=== PATIENT | male | born 1945 | race Caucasian/White ===

== ENCOUNTER → 2018-10-27 11:37 | Outpatient (ROUT) | payer MEDICARE, SELFPAY ==
[2018-10-27 11:40] LABS: Bacteria Urine None Seen; RBC Urine None Seen (0-5/HPF); WBC Urine None Seen (0-5/HPF)
[2018-10-27 11:53] LABS: Add Manual Diff / Slide Review NO; Basophils Absolute Auto 0 /uL (0-100); Basophils Percent Auto 0.9 % (0-2); Eosinophils Absolute Auto 600 /uL (0-450); Eosinophils Percent Auto 11.2 % (2-4); Hematocrit 47.5 % (41-53); Hemoglobin 16.4 g/dL (13.5-17.5); Lymphocytes Absolute Auto 1600 /uL (1100-4500); Lymphocytes Percent Auto 29.6 % (25-40); Mean Corpuscular HGB Conc 34.6 % (30-36); Mean Corpuscular Hemoglobin 33.3 PG (26-34); Mean Corpuscular Volume 96.1 fL (80-100); Monocytes Absolute Auto 600 /uL (0-900); Monocytes Percent Auto 10.5 % (3-14); Neutrophils Absolute Auto 2600 /uL (1500-7000); Neutrophils Percent Auto 47.8 % (50-75); Platelet Count 178 X10^3/uL (150-400); Red Blood Cell Count 4.94 X10^6/uL (4.5-5.9); Red Cell Distribution Width 13.5 % (11.6-14.8); White Blood Cell Count 5.4 X10^3/uL (4.5-11.0)
[2018-10-27 12:00] LABS: Alanine Aminotransferase 61 IU/L (21-72); Albumin 4.4 g/dL (3.5-5.0); Albumin Globulin Ratio 1.4 (1.0-2.8); Alkaline Phosphatase 43 U/L (38-126); Aspartate Aminotransferase 54 IU/L (17-59); BUN Creatinine Ratio 15.8 (6-22); Bilirubin Total 0.9 mg/dL (0.2-1.3); Blood Urea Nitrogen 19 mg/dL (9-20); Calcium 10.7 mg/dL (8.4-10.2); Carbon Dioxide 30 mmol/L (22-32); Chloride 100 mmol/L (98-107); Cholesterol 206 mg/dL (140-199); Estimated Glomerular Filt Rate 59.2 mL/min (>60); Globulin 3.1 g/dL (1.7-4.1); Glucose 116 mg/dL (80-110); HDL Cholesterol 84 mg/dL (40-60); HEMOLYSIS 18 (0-50); LDL Cholesterol Calculated 99 mg/dL (<100); Potassium 4.8 mmol/L (3.4-5.1); Sodium 139 mmol/L (137-145); Total Protein 7.5 g/dL (6.3-8.2); Triglycerides 117 mg/dL (35-150); Uric Acid 8.1 mg/dL (3.5-8.5)
[2018-10-27 12:04] LABS: Appearance Urine UA CLEAR; Bilirubin Urine UA NEGATIVE (NEGATIVE); Color Urine UA YELLOW; Glucose Urine UA NEGATIVE (Negative); Ketones Urine UA NEGATIVE (NEGATIVE); Leukocyte Esterase Urine UA NEGATIVE (NEGATIVE); Nitrite Urine UA NEGATIVE (Negative); Occult Blood Urine UA NEGATIVE (Negative); Protein Urine UA NEGATIVE (Negative); Urobilinogen Urine UA 0.2 E.U./dL (0.2)
[2018-10-27 12:21] LABS: Culture Indicated Urine Cult Not Indicated; Urine Comments Microscopic Normal
[2018-10-27 12:30] LABS: Thyroid Stimulating Hormone 4.41 uIU/mL (0.47-4.68)
== END ==
PROVIDERS: Visit Provider Internal Medicine
DX: I10 Essential (primary) hypertension (principal); M1A.40X0 Other secondary chronic gout, unspecified site, without tophus (tophi); E78.5 Hyperlipidemia, unspecified
CPT/HCPCS: 80053; 80061; 81001; 84443; 84550; 85025

== ENCOUNTER → 2019-04-17 15:25 | Outpatient (CLI) | payer OTHER, SELFPAY ==
--- NOTE | 2019-04-17 15:39 | DI.RAD.S_ITS ---
PROCEDURE: XR CHEST 2V INDICATIONS: COUGH TECHNIQUE: 2 views of the chest were acquired. COMPARISON: None. FINDINGS: Surgical changes and devices: None. Lungs and pleura: Lungs are clear. No pleural effusions or pneumothorax. Mediastinum: Mediastinal contours are normal. Heart size is normal. Bones and chest wall: No suspicious bony abnormalities. Soft tissues appear unremarkable. IMPRESSION: No acute disease Dictated by: Victor M Mcconnell M.D. on 04/17/2019 at 17:19 Approved by: Victor M Mcconnell M.D. on 04/17/2019 at 17:20
== END ==
PROVIDERS: PCP Internal Medicine; Referring Provider Internal Medicine; Visit Provider Internal Medicine
DX: R05 Cough (principal)
CPT/HCPCS: 71046

== ENCOUNTER → 2019-05-09 11:47 | Outpatient (CLI) | payer OTHER, SELFPAY ==
[2019-05-11 04:11] LABS: COVID19 Sendout Not Detected (Not Detected)
== END ==
PROVIDERS: PCP Internal Medicine; Visit Provider Family Medicine
DX: R05 Cough (principal)
CPT/HCPCS: 87635

== ENCOUNTER → 2019-07-18 10:51 | Outpatient (CLI) | payer OTHER, SELFPAY ==
[2019-07-19 10:41] LABS: COVID19 Sendout NOT DETECTED (Not Detect)
== END ==
PROVIDERS: PCP Internal Medicine; Visit Provider Registered Nurse
DX: Z01.818 Encounter for other preprocedural examination (principal)
CPT/HCPCS: 87635

== ENCOUNTER → 2019-07-21 10:40 | Outpatient (CLI) | payer OTHER, SELFPAY ==
--- NOTE | 2019-07-26 10:11 | PM.PFT.1 ---
Pulmonary Function Test Referral & Results Date Patient Seen: 07/21/19 Requesting provider: Madeleine Orr Results: The spirometry demonstrates an FVC of 2.92 L which is 71% of predicted. The FEV1 was measured at 2.21 L which is 74% of predicted. The FEV1/FVC ratio was 76 which is 104% of predicted. Following the administration of bronchodilator there was a 25% improvement in FEF 25-75%. Lung volumes show an SVC of 3.21 L which is 73% of predicted. The diffusing capacity was measured at 21.49 which is 69% of predicted. No hemoglobin value was provided, so no correction for potential anemia could be made, if appropriate. The maximum voluntary ventilation was reduced Interpretation: This study demonstrates mild to moderate obstructive lung disease based on reduction FEV1. There is some limited evidence of benefit following bronchodilator based on improvement in small airway flow as demonstrated by the improvement in the FEF 25-75% as above There is also [id number] restrictive lung disease present based on reduction SVC There is also mild reduction in diffusing capacity suggesting element of disease at the capillary alveolar level Altogether this is consistent with a diagnosis of COPD
== END ==
PROVIDERS: PCP Internal Medicine; Referring Provider Internal Medicine; Visit Provider Internal Medicine
DX: J45.901 Unspecified asthma with (acute) exacerbation (principal); Z87.891 Personal history of nicotine dependence
CPT/HCPCS: 94060; 94726; 94729

== ENCOUNTER → 2019-09-06 10:53 | Outpatient (CLI) | payer OTHER, SELFPAY ==
--- NOTE | 2019-09-06 | DI.US.S_ITS ---
PROCEDURE: US ABD AORTA ANEURYSM SCREEN INDICATIONS: SCREENING AAA TECHNIQUE: Real time scanning was performed of the aorta and iliac arteries, with image documentation. COMPARISON: None. FINDINGS: Aorta: Proximal aortic diameter measures 1.8 cm. Mid-aorta measures 1.5 cm. Distal aortic diameter is 1.6 cm. Iliac arteries: Right common iliac artery measures 1 cm. Left common iliac artery measures 1.1 cm. IMPRESSION: Negative for aneurysm. Dictated by: Ang Goode M.D. on 09/06/2019 at 11:42 Approved by: Ang Goode M.D. on 09/06/2019 at 11:42
== END ==
PROVIDERS: PCP Family Medicine; Referring Provider Family Medicine; Visit Provider Family Medicine
DX: Z13.6 Encounter for screening for cardiovascular disorders (principal)
CPT/HCPCS: 76706

== ENCOUNTER → 2019-11-30 10:39 | Outpatient (CLI) | payer OTHER, SELFPAY ==
--- NOTE | 2019-11-30 | DI.US.S_ITS ---
PROCEDURE: US RENAL COMPLETE INDICATIONS: HYPOTHYROIDISM,RENAL INSUFFICIENCY TECHNIQUE: Real-time scanning was performed of the kidneys and bladder, with image documentation. COMPARISON: None. FINDINGS: Kidneys: Kidneys are normal in size. Right kidney measures 11.6 cm long; left kidney measures 11.8 cm long. Right renal cortical thickness is 1.4 cm; left renal cortical thickness is 1.5 cm. Renal cortical echotexture is normal. No hydronephrosis or nephrolithiasis. No suspicious solid mass lesions. Bladder: Pre-void bladder volume is 354.8 mL. Post-void residual is 219.6 mL. Pre-void images demonstrate no intraluminal masses or stones. On pre-void images, bilateral ureteral jets are noted with color Doppler interrogation. (Of note, ureteral jets may not be detectable in up to 25% of cases due to insufficient differences in specific gravity between ureteral and bladder urine). Miscellaneous: No free pelvic fluid. IMPRESSION: 1. No hydronephrosis or nephrolithiasis. 2. Large postvoid residual. Dictated by: Trang Briones M.D. on 11/30/2019 at 12:33 Approved by: Trang Briones M.D. on 11/30/2019 at 12:35
--- NOTE | 2019-11-30 | DI.US.S_ITS ---
PROCEDURE: US THYROID INDICATIONS: HYPOTHYROIDISM,RENAL INSUFFICIENCY TECHNIQUE: Real-time scanning was performed of the thyroid gland, with image documentation. COMPARISON: None. FINDINGS: Right: Thyroid lobe measures 4.0 x 1.3 x 1.2 cm, and is heterogeneous in echotexture. Left: Thyroid lobe measures 3.9 x 1.4 x 1.5 cm, and is heterogeneous in echotexture. Isthmus: 3 mm thick. No thyroid nodules. IMPRESSION: Overall heterogeneous echotexture of the thyroid without discrete thyroid nodules. ACR TI-RADS definitions and recommendations: TI-RADS 1 (benign): 0 points. FNA not needed. TI-RADS 2 (not suspicious): 2 points. FNA not needed. TI-RADS 3 (mildly suspicious): 3 points. * FNA if 2.5 cm or larger, follow up if 1.5 cm or larger (at 1, 3, and 5 years). TI-RADS 4 (moderately suspicious): 4-6 points. * FNA if 1.5 cm or larger, follow up if 1 cm or larger (at 1, 2, 3, and 5 years). TI-RADS 5 (highly suspicious): 7 points or more. * FNA if 1 cm or larger, follow up if 0.5 cm or larger (every year for 5 years). Dictated by: Trang Briones M.D. on 11/30/2019 at 12:32 Approved by: Trang Briones M.D. on 11/30/2019 at 12:33
== END ==
PROVIDERS: PCP Family Medicine; Referring Provider Family Medicine; Visit Provider Family Medicine
DX: E03.9 Hypothyroidism, unspecified (principal); N28.9 Disorder of kidney and ureter, unspecified
CPT/HCPCS: 76536; 76770

== ENCOUNTER → 2020-10-17 16:30 | Outpatient (CLI) | payer MEDICARE, SELFPAY ==
--- NOTE | 2020-10-17 | DI.RAD.S_ITS ---
PROCEDURE: XR SHOULDER RT MIN 2V INDICATIONS: RIGHT ARM PAIN TECHNIQUE: 3 views of the shoulder were acquired. COMPARISON: None. FINDINGS: Bones: Right scapular fracture which could be much better assessed with CT as clinically necessary. Calcific tendinitis incidentally noted. There is moderate AC and glenohumeral joint degeneration. Soft tissues: No suspicious soft tissue calcifications. IMPRESSION: Right scapular fracture, which could be better assessed with CT as clinically warranted. Dictated by: Victor M Mcconnell M.D. on 10/18/2020 at 11:32 Approved by: Victor M Mcconnell M.D. on 10/18/2020 at 11:33
--- NOTE | 2020-10-17 | DI.RAD.S_ITS ---
PROCEDURE: XR SCAPULA RT INDICATIONS: RIGHT ARM PAIN TECHNIQUE: 2 views of the scapula were acquired. COMPARISON: [facility], [place], XR CHEST 1 VIEW, 04/23/2020, 17:59. [facility], [place], PET NECK TO MID THIGH, 04/05/2020, 14:54. [facility], [place], XR SHOULDER RT MIN 2V, 10/17/2020, 16:48. FINDINGS: Bones: Scapular fracture noted. AC and glenohumeral joint degeneration. Soft tissues: Overlying soft tissues appear normal. IMPRESSION: Right scapular fracture. This could be better assessed with dedicated CT as clinically warranted. Dictated by: Victor M Mcconnell M.D. on 10/18/2020 at 11:29 Approved by: Victor M Mcconnell M.D. on 10/18/2020 at 11:32
== END ==
PROVIDERS: PCP Family Medicine; Referring Provider Family Medicine; Visit Provider Family Medicine
DX: M79.601 Pain in right arm (principal); S42.111A Displaced fracture of body of scapula, right shoulder, initial encounter for closed fracture; M19.011 Primary osteoarthritis, right shoulder; M75.31 Calcific tendinitis of right shoulder; W19.XXXA Unspecified fall, initial encounter
CPT/HCPCS: 73010; 73030

== ENCOUNTER → 2020-12-11 13:00 | Outpatient (CLI) | payer MEDICARE, SELFPAY ==
--- NOTE | 2020-12-11 | DI.RAD.S_ITS ---
PROCEDURE: FL BARIUM SWALLOW W SPEECH INDICATIONS: Dysphagia, oropharyngeal phase COMPARISON: None. TECHNIQUE: Examination was conducted in conjunction with speech pathology per standard protocol. In the lateral projection, filming was performed of the patient swallowing. AP projection filming may also be performed with patient swallowing. COMPARISON: FINDINGS: Function: The oral preparatory phase of swallowing is quite delayed with lack of containment. There is laryngeal penetration and aspiration of liquids. Morphology: No cricopharyngeal bar is identified. No cervical esophageal webs. No Zenker's diverticulum. No strictures. IMPRESSION: Laryngeal penetration and aspiration. Dictated by: Dixon Alvares M.D. on 12/11/2020 at 14:20 Approved by: Dixon Alvares M.D. on 12/11/2020 at 14:20
--- NOTE | 2020-12-11 17:15 | ST.SWALLOW ---
Visit Care Team Role Provider Type Gurvinder Young DO Attending Provider Non-Staff Primary Care Provider Referring Provider Specialty: Family Practice Address: [address] [place] [address], [id number] Email: Modified Barium Swallow Study STUDENT SUCCESS ADVISOR Modified Barium Swallow Study Start: 12/11/20 12:20 Freq: Status: Active Protocol: Document 12/11/20 14:14 NIRAV (Rec: 12/11/20 14:47 NIRAV [id number]) Modified Barium Swallow Study Total Time Visit Start Time 12:35 Visit Stop Time 13:05 Total Visit Minutes [address] Gurvinder Young Reason for Referral Dysphagia with G-tube feeding Setting Setting Outpatient Care Patient Information Identification Type Name,ID Card Patient History Pt is a 75-year-old male with a complex medical history of tonsilar cancer with metastisis. Medical history was obtained from Dr. Bela Yan, [facility], who is treating the patient in outpatient rehab clinic, and from the pt and other medical records. In 2019 the pt was diagnosed with tonsilar cancer , which was followed by 30 radiation treatments. Radiation treatment was unsuccessful and a biopsy was ordered. Pt reported that in June 2019, he underwent surgical intervention which included removal of most of the soft palate, removal of half of the tongue root and oral reconstruction using pt's back bone to replace the right side of his mandible. According to the pt the cancer had metastisized to the lymph nodes. The radiation therapy had also damaged his right mandible. Pt also has a g-tube for nutrition and hydration. His goal is to safely resume oral consumption. Outpatient Speech Therapy is also targeting speech intelligiblity secondary to head and neck cancer and subsequent medical treatment, as well as cognitive communication deficits due to significant atrophy of bilateral frontal lobes. Subjective Observations The pt arrived on time and provided case history supplemental to medical records and treating STUDENT SUCCESS ADVISOR's report. The pt informed that he consumes small amounts of water occasionally at home and feels he successfully swallows with a head tilt and chin lift to the left side. He also performs [id number] at home for taste pleasure and oral hygiene. Dr. Yan was present for observation of MBSS to benefit outpatient therapy. Procedures and purpose of MBSS was explained to the pt, who was agreeable to proceed. Patient Positioning Position View Lateral Imaging Lateral View Textures Administered Trials Presented [place] Liquid via Spoon Oral Phase Source: MBSIMP (TM) (C) Bolus Specific Scoring Grid Lip Closure No Impairment (WNL) Tongue Control During Bolus Hold Severe Impairment Bolus Prep/Mastication Severe Impairment Bolus Transport/Lingual Motion Severe Impairment A/P Lingual Propulsion Delay Yes: No effective propulsion was observed Oral Residue Severe Impairment Residue Clearing Severe Impairment Nasal Regurgitation No Additional Oral Phase Observations Oral Peripheral Exam: As described above, the majority of the right side and medial velum is missing; left side is mostly intact. Right side tongue resection and skin graft were visible. Pt was unable to lateralize tongue to the right side. Left side lateralization was weak but with adequate ROM. Mild deviation to right side was present upon lingual extension ; tongue blade was in neutral position while at rest. Mild right side droop/weakness of lower face was noted, likely d /t surgery. The pt was missing a few bottom molars bilaterally; otherwise, dentition was complete and in good condition. The pt presented with significantly reduced speech intelligiblity characterized by hypernasal phonation, reduced loudness, and imprecise articulation. Oral prep and swallow phases consisted primarily of anterior lingual rocking and contact with alveolar ridge, without elevation of back of tongue. This resulted in slow escape of bolus along tongue blade from oral cavity to pharyngeal cavity. Approx 1/4 of contrast remained in the oral cavity, which the pt attempted to clear from his mouth with a hand cloth and which required [id number] with clear water to remove. Pharyngeal Phase Source: MBSIMP (TM) (C) Bolus Specific Scoring Grid Delayed Initiation of Pharyngeal Swallow Yes Number of Seconds Delayed (seconds) Up to 13 sec Soft Palate Elevation Severe Impairment Tongue Base Strength/Range of Motion Moderate Impairment Residue Along the Tongue Base Yes Clearance of Residue Along Tongue Base Severe Impairment Laryngeal Elevation Severe Impairment Anterior Hyoid Movement Severe Impairment Epiglottic Range of Motion Severe Impairment Vallecular Residue Yes Clearance of Vallecular Residue Severe Impairment Laryngeal Vestibular Closure Severe Impairment Pharyngeal Stripping Wave Moderate Impairment Posterior Pharyngeal Wall Residue Yes Clearance of Posterior Pharyngeal Wall Severe Impairment Residue Upper Esophageal Sphincter Opening Severe Impairment Residue in the Pyriform Sinuses Yes Clearance of Residue in the Pyriform Severe Impairment Sinuses Pharyngoesophageal Backflow Observed No Additional Pharyngeal Phase Observations Swallow trigger occurred when bolus reached vallecula and aryepiglottic folds. Light contact of tongue base and pharygeal wall was observed. No epiglottic inversion present. Minimal superior and no anterior movement of hyolaryngeal unit. Minimal extension/duration of UES. All of this resulted in significant pharyngeal residue with eventual laryngeal penetration and tracheal aspiration of contrast, silent in nature. Volitional cough was weak and ineffective at clearing aspirated substance. Compensatory strategies tried included left side head tilt and chin elevation, which were ineffective. A/P View Textures Administered Trials Presented [place] Liquid via Spoon Clinical Impressions Dysphagia Type Severe oral and pharyngeal dysphagia Findings The pt presents with severe oral and pharyngeal dysphagia secondary to head and neck cancer and its treatment, including surgical removal of right side velum, right side tongue resection and skin graft, and likely from radiation effects. With exception of the anterior tongue blade, there was minimal movement of oral, pharyngeal, and hyolaryngeal musculature. Because much of the pt's tongue root and right faucial piller were removed, he has no back of tongue elevation to contain the bolus in the oral cavity and swallow response does not trigger until the bolus has spilled to the pharynx, which significantly increases his risk of aspiration. While base of tongue and upper pharyngeal constrictors made contact, a narrow column of contrast was observed between tongue base and pharyngeal wall. Partial hyolaryngeal elevation and no anterior propulsion resulted in minimal closure of the laryngeal vestibule. Epiglottic inversion was absent; pharyngeal stripping wave was diminished; and minimal distention and duration of UES opening was observed, resulting in significant pharyngeal residue at vellecula, aryepiglottic folds , and pyriform sinuses. As the pt continued swallow attempts , trace amounts of contrast passed through the UES at a time, and pharyngeal residue penetrated the laryngeal vestibule with subsequent aspiration without cough response from the pt. When instructed by STUDENT SUCCESS ADVISOR to cough, the pt produced a very weak and ineffective cough, further increasing risk of consequences of aspiration. Rehabilitation Potential Fair Patient Appropriate for Therapy Yes Recommendations Diet Liquids Order Nothing by Mouth Diet Order NPO/Alternative Means of Nutrition/Hydration Medication Recommendation Not Recommended by Mouth Treatment Plan Therapy Recommendations Outpatient Speech Therapy Additional Therapy Recommendations Consider palatal prosthesis; massage to reduce radiation effect Additional Recommended Referrals Consultation with Lymphedema specialist Short Term Goals The pt will follow up with his primary STUDENT SUCCESS ADVISOR to discuss and form POC. Oral and pharyngeal exercises are recommended, given the presence of muscular movement, albeit limited. Other treatment considerations have been noted above. Penitentiary Goals 1. The pt will demonstrate swallow safety sufficient for oral intake for pleasure.
== END ==
PROVIDERS: PCP Family Medicine; Referring Provider Family Medicine; Visit Provider Family Medicine
DX: R13.12 Dysphagia, oropharyngeal phase (principal)
CPT/HCPCS: 74230; 92611

== ENCOUNTER 2021-01-08 11:30 | Outpatient (RCR) | payer MEDICARE, SELFPAY ==
--- NOTE | 2020-10-18 17:20 | ST.IPIE ---
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 According to the pt and his , Carri, in 2019 the pt was diagnoses with tonsilar cancer, which was followed by 30 radiation treatment. Radiation treatment was unsuccessful and a biopsy was ordered. Pt reported that in June 2019, he underwent surgical intervention which included removal of most ofthe soft palate, removal of half of the tongue root and oral reconstruction using pt's back bone to replace the right side of his mandible. According to the pt the cancer had metastasized to the lymph nodes. The radiation therapy had also damaged his right mandible. Pt also has a g-tube for nutrition and hydration. He would like to eat and is here for swallowing therapy. Additionally the pt's speech is significantly dysarthric and hypernasal; for which he would also want speech therapy to improve intelligibility. According to the records reviewed the pt also has demonstrated changes in behavior and and mood due to significant atrophy of bilateral frontal lobes. Referral Referring Physician Gurvinder Young MD Reason for Referral speech and swallow therapy Mental Status Mental Status Alert,Responsive,Cooperative Subjective Observations Subjective Pt was on time for appointment and arrived with his . Oral Motor Lips Function Severe Impairment Observation at rest asymmetry of the lower face structures most likely due to surgery Pucker reduced ROM Retraction reduced ROM Alternating pucker/retraction reduced speed and ROM Involuntary Movement n/a Tongue Function Moderate Impairment Observations at rest right side asymmetry Protrusion reduced ROM Retraction reduced ROM Lateralization unable to lateralize to the right Involuntary Movement n/a Jaw Function Moderate Impairment Opening reduced ROM Closing WFL Lateralization unable Protrusion unable Retraction unable Involuntary movement n/a Soft Palate Function Severe Impairment Observations at rest Most of velum missing. Small amount of tissue remains on left side of mouth Symmetry none Elevation none Sustained Elevation none Alternating elevation/relaxation none Involuntary Movement n/a Respiration/Phonation Phonation Other hypernasal Function Severely Impaired Loudness Reduced Loudness Diadochokinetic Rates P^T^K^ Quality Severe Impairment Comments slow, imprecise, reduced coordination Speech Intelligibility Phoneme Severity Severely Impaired Awareness/Strategy Use Description Type of awareness/use Uses intermittently Findings Details Motor Speech Function Moderate-Severe Impairment Assessment Prognosis Rehabilitation Potential Fair Recommendations Treatment Recommended Yes Therapy Recommendations 1) OM exercises to improve ROM and strength of tongue, jaw, lips 2) linguapharyngeal and base of tongue exercises to improve strength and ROM for swallowing 3) compensatory strategies will be used and taught to pt to increase speech intelligibility and improve pt 's ability to safely tolerate PO intake Short Term Goals Modified Barium Swallow Study to determine pt's current swallow status/ability Patient/Family Education Education Described results of evaluation,Patient Understanding,Family Understanding,Patient Needs More Info,Family Needs More Info
--- NOTE | 2020-10-23 11:15 | ST.OPRE ---
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 According to the pt and his , Carri, in 2019 the pt was diagnosed with tonsilar cancer, which was followed by 30 radiation treatment. Radiation treatment was unsuccessful and a biopsy was ordered. Pt reported that in June 2019, he underwent surgical intervention whinch included removal of most of the soft palate, removal of half of the tongue root and oral reconstruction using pt's back bone to replace the right side of his mandible. According to the pt the cancer had metastisized to thelymph nodes. The radiation therapy had also damaged his right mandible. Pt also has a g-tube for nutrition and hydration. He would like to eat and is here for swallowing therapy. Additionally the pt's speech is significantly dysarthric and hypernasal; for which he would also want speech therapy to improve intelligibility. According to the records reviewed the pt also has demonstrated changes in behavior and and mood due to significant atrophy of bilateral frontal lobes. Referral Referring Physician Gurvinder Yonug MD Reason for Referral speech and swallow therapy Mental Status Mental Status Alert,Responsive,Cooperative Subjective Observations Subjective Pt was on time for appointment and arrived with his . Oral Motor Lips Function Severe Impairment Observation at rest asymmetry of the lower face structures most likely due to surgery Pucker reduced ROM Retraction reduced ROM Alternating pucker/retraction reduced speed and ROM Involuntary Movement n/a Tongue Function Moderate Impairment Observations at rest right side asymmetry Protrusion reduced ROM Retraction reduced ROM Lateralization unable to lateralize to the right Involuntary Movement n/a Jaw Function Moderate Impairment Opening reduced ROM Closing WFL Lateralization unable Protrusion unable Retraction unable Involuntary movement n/a Soft Palate Function Severe Impairment Observations at rest Most of velum missing. small amount of tissue remains on left side of mouth Symmetry none Elevation none Sustained Elevation none Alternating elevation/relaxation none Involuntary Movement n/a Respiration/Phonation Phonation Other Hypernasal Function Severely Impaired Loudness Reduced Loudness Conversation Other Hypernasal Function Severely Impaired Loudness Reduced Loudness Diadochokinetic Rates P^T^K^ Quality Severe Impairment Comments slow, imprecise, reduced coordination Speech Intelligibility Word Severity Severely Impaired Sentence Severity Severely Impaired Conversation Severity Severely Impaired Awareness/Strategy Use Description Type of awareness/use Uses intermittently Findings Details Motor Speech Function Moderate-Severe Impairment Assessment Details Assessment Eric Farfan presented with 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 Pt is tube fed via g-tube and would like to eat. Pt reported that he is currently drinking small amounts of water several times per day. He admitted to eating popcorn as well. A strict NPO status was described and strongly encouraged due to high aspiration risk. Pt demonstrated questionable behavior during the assessment and afterward in the clinic. He has been diagnosed with significant atrophy of bilateral frontal lobes , which has resulted in behavioral changes as well as mood changes. His self- reported PO intake is suggesting poor decision- making and lack of insight into the high risk for aspiration. additionally, as pt and his were leaving the evaluation session, he impusivly walked over to a treadmill and started walking on it without supervision or PT intervention. When asked what he was doing on the treadmill, pt noted I was just having fun. According to records reviewed, a neuropsychological evaluation has been recommended for the pt due to behavior changes reported; however it appears that neither the pt or his have followed up on that recommendation. A cognitive assessment at this clinic would provide insight into the pt's cognitive skills and assist in determining best plan of care. Prognosis Rehabilitation Potential Fair Recommendations Treatment Recommended Yes Therapy Recommendations 1) OM exercises to improve ROM and strength of tongue, jaw, lips 2) linguapharyngeal and base of tongue exercises to improve strength and ROM for swallowing 3) compensatory strategies will be used and taught to pt to increase speech intelligibility and improve pt 's ability to safely tolerate PO intake Short Term Goals 1) Modified Barium Swallow Study to determine pt's current swallow and oropharyngeal status relative to prognosis for swallow therapy and/or PO intake. 2) Pt will complete a cognitive assessment to determine current cognitive functioning and assist in development of POC 3) Explore options for velopharyngeal obturator to artificially result in velopharyngeal space reduction with goal to aid in swallow efficacy and to reduce nasality for improving speech intelligibility. Referrals Suggested Neurology Patient/Family Education Education Described results of evaluation,Patient Understanding,Family Understanding,Patient Needs More Info,Family Needs More Info
--- NOTE | 2020-10-23 11:16 | ST.OPPOC ---
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 According to the pt and his , Carri, in 2019 the pt was diagnosed with tonsilar cancer, which was followed by 30 radiation treatment. Radiation treatment was unsuccessful and a biopsy was ordered. Pt reported that in June 2019, he underwent surgical intervention whinch included removal of most of the soft palate, removal of half of the tongue root and oral reconstruction using pt's back bone to replace the right side of his mandible. According to the pt the cancer had metastisized to thelymph nodes. The radiation therapy had also damaged his right mandible. Pt also has a g-tube for nutrition and hydration. He would like to eat and is here for swallowing therapy. Additionally the pt's speech is significantly dysarthric and hypernasal; for which he would also want speech therapy to improve intelligibility. According to the records reviewed the pt also has demonstrated changes in behavior and and mood due to significant atrophy of bilateral frontal lobes. Short Term Goals 1) Modified Barium Swallow Study to determine pt 's current swallow and oropharyngeal status relative to prognosis for swallow therapy and/or PO intake. 2) Pt will complete a cognitive assessment to determine current cognitive functioning and assist in development of POC 3) Explore options for velopharyngeal obturator to artificially result in velopharyngeal spacereduction with goal to aid in swallow efficacy and to reduce nasality for improving speech intelligibility. Electronically Signed by: SARA Valentine 10/23/20 [id number] Please Sign and Return: I have reviewed this Plan of Care and certify that the skilled therapy services above are required to meet the patient?s needs. Physician Signature Date Printed Name and Credentials Clinical Instructor Signature Printed Name and Credentials
--- NOTE | 2020-10-25 11:04 | ST-OP ANOTE ---
Physical, Occupational & Speech Therapy At [facility] Speech Therapy Note Received call back from pt's PCP Gurvinder Young DO at [facility] regarding pt's complicated presentation. Discussed the need for cognitive assessment, MBSS and initiating a referral for velar obtruator. Dr Young provided additional information regarding pt's overall poor prognosis from his cancer. 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 Dr. Young agreed with the POC and will fax over orders for both the MBSS and cognitive assessment (along with SLUMS or MOCA data).
--- NOTE | 2020-10-31 15:29 | ST.OPTN ---
Visit Care Team Role Provider Type Gurvinder Young DO Attending Provider Non-Staff Primary Care Provider Referring Provider Address: [address] [place] [address], [id number] DOPE FIRER Treatment Note DOPE FIRER Treatment Note Start: 10/18/20 14:23 Freq: Status: Active Protocol: Document 10/31/20 15:04 LNK (Rec: 10/31/20 15:29 LNK [email or web address]) Speech Pathology Treatment Note Session Time Visit Start Time 11:30 Visit Stop Time 12:30 Total Visit Minutes 60 Visit Information Visit Number 2 Plan of Care Dates 10/18/20-01/17/21 Setting Treatment Setting Outpatient Care Visit Type Note Type Treatment Note Next Note Type Next Note Type Re-Evaluation General Information General Information Pt is a 75 year ol male seen fir assessment secondary to a 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 According to the pt and his , Carri, in 2019 the pt was diagnosed with tonsilar cancer, which was followed by 30 radiation treatment. Radiation treatment was unsuccessful and a biopsy was ordered. Pt reported that in June 2019, he underwent surgical intervention which included removal of most of the soft palate, removal of half of the tongue root and oral reconstruction using pt's back bone to replace the right side of his mandible. According to the pt the cancer had metastisized to the lymph nodes. The radiation therapy had also damaged his right mandible. Pt also has a g-tube for nutrition and hydration. He would like to eat and is here for swallowing therapy. Additionally the pt's speech is significantly dysarthric and hypernasal; for which he would also want speech therapy to improve intelligibility. According to the records reviewed the pt also has demonstrated changes in behavior and and mood due to significant atrophy of bilateral frontal lobes. 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 Pt is tube fed via g-tube and would like to eat. Pt reported that he is currently drinking small amounts of water several times per day. He admitted to eating popcorn as well. A strict NPO status was described and strongly encouraged due to high aspiration risk. Pt demonstrated questionable behavior during the assessment and afterward in the clinic. He has been diagnosed with significant atrophy of bilateral frontal lobes, which has resulted in behavioral changes as well as mood changes. His self-reported PO intake is suggesting poor decision-making and lack of insight into the high risk for aspiration. As pt and his were leaving the evaluation session, he impulsively walked over to a treadmill and started walking on it without supervision or PT intervention. When asked what he was doing on the treadmill, pt noted I was just having fun. According to records reviewed, a neuropsychological evaluation has been recommended for the pt due to behavior changes reported; however it appears that neither the pt or his have followed up on that recommendation. Chief Complaint(s) Speech,Swallowing,Cognitive Rehab Expectation/Goals: Patient Goals Would like to return to his life. Patient Knowledge/Awareness of DOPE FIRER Role Good in Treatment Parent/Caretake Knowledge/Awareness of Good DOPE FIRER Role in Treatment Objective Short Term Goals 1) Modified Barium Swallow Study to determine pt's current swallow and oropharyngeal status relative to prognosis for swallow therapy and/or PO intake. 2) Pt will complete a cognitive assessment to determine current cognitive functioning and assist in development of POC 3) Explore options for velopharyngeal obturator with goal to aid in swallow efficacy and to reduce nasality for improving speech intelligibility. Treatment Activities Reviewed the MRI and CT information via radiologists report. Indicated to the pt that the priorities that this DOPE FIRER for the pt's therapy are first to assess pt's cognitive skills at this time; second to contact a switchman for creation of a palatal obturator for the pt for improving speech intelligibility and potentially allow for safe swallowing; third to explore swallow therapy following an MBSS and obturator placement if indicated. A review of the anatomy of the brain with the frontal lobe functions was presented to the pt. Cognitive changes that may occur with frontal lobe damage was also described. Discussed the need for cognitive assessment to determine the pt 's current status and baseline skills in order to monitor changes that may occur in the future. Pt and his were agreeable to proceed with further assessment, which will take place at the next session. Assessment Patient Response to Treatment Good Rehab Potential Good Impairments Identified Cognitive-Linguistic Skills, Dysarthria,Dysphagia,Oral Motor,Speech Intelligibility, Vocal Quality Additional Impairments Identified Need for palatal obturator/ prosthedontist Reviewed with Patient Goals Patient/Caregiver Understanding Good Plan Amount of Therapy Recommended 6 Months Frequency of Treatment Once a Week Length of Session 60 Minutes Treatment Emphasis Next Session Cognitive evaluation Therapeutic Contents Client Education,Cognitive- Linguistic Training, Intelligibility,Oral Motor Training,Swallowing/Feeding, Other Suggested Referral Neurology,Other Other Referrals Neurophsychologist; prosthedontist
--- NOTE | 2020-11-11 14:28 | ST.OPRE ---
Visit Care Team Role Provider Type Gurvinder Young DO Attending Provider Non-Staff Primary Care Provider Referring Provider Specialty: Family Practice Address: [address] [place] [address], [id number] Email: Speech-Language Pathology Evaluation/Summary SHOW GIRL Adult Cognitive Linguistic Eval Start: 11/07/20 15:47 Freq: Status: Active Protocol: Document 11/06/20 14:30 LNK (Rec: 11/07/20 17:16 LNK [email or web address]) Adult Cognitive Linguistic Evaluation Session Time Visit Start Time 14:30 Visit Stop Time 15:30 Total Visit Minutes 60 Visit Information Visit Number 2 Setting Assessment Location Outpatient Care Visit Type Note Type Re-evaluation Next Note Type Next Note Type Treatment Note Patient Information Identification Type Name,Date of Medical History Pt is a 75 year old male seen for cognitive assessment secondary to 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 His has reported changes in pt's behavior and mood. He presents with a complex medical history of tonsilar cancer with metastisis. According to the pt and his , Carri, in 2019 the pt was diagnosed with tonsilar cancer, which was followed by 30 radiation treatments. Radiation treatment was unsuccessful and a biopsy was ordered. Pt reported that in June 2019, he underwent surgical intervention which included removal of most of the soft palate, removal of half of the tongue root and oral reconstruction using pt's back bone to replace the right side of his mandible. According to the pt the cancer had metastisized to the lymph nodes. The radiation therapy had also damaged his right mandible. Pt also has a g-tube for nutrition and hydration. He would like to eat and is here for therapy. Additionally , the pt's speech is significantly dysarthric and hypernasal; for which he would also want speech therapy to improve intelligibility. 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 Pt is tube fed via g-tube and would like to eat. Pt reported that he was currently drinking small amounts of water several times per day. He admitted to eating popcorn as well. A strict NPO status was described and strongly encouraged due to high aspiration risk. Pt demonstrated questionable behavior during the assessment and afterward in the clinic. His reported that pt had spent quite a lot of money, which she stated was very out of character for him. She became worried and spoke to her doctor. He has been diagnosed with significant atrophy of bilateral frontal lobes, which has resulted in behavioral changes as well as mood changes. His self- reported PO intake is suggesting poor decision- making and lack of insight into the high risk for aspiration. Pt has also presented impulsive behavior within this clinic. For example, he has impulsively walked over to a treadmill and started walking on it without supervision or PT intervention. When asked what he was doing on the treadmill , pt noted I was just having fun. The pt has been referred for a neuropsychological evaluation due to behavior changes reported; his has reported that an appointment has been scheduled. Assessment Oral Motor Examination Completed No Results See oral motor evaluation Informal Assessment Receptive Language Normal Yes Expressive Language Normal Yes Pragmatic Language Normal Will , at times, say something unrelated to conversation Pragmatic Language Impairment(s) Flat affect Speech Normal No Speech Impairment(s) Imprecise articulation,Slow speech rate,Decreased volume/ intensity,Hypernasality Cognitive Impairment(s) Attention,Executive functioning,Problem solving, Reasoning,Safety awareness, Impulsivity Formal Assessment Standardized Test/Screener Type Scales of Cognitive and Communicative Ability (SCCAN) Administration Complete Findings/Results Cognitive Function Mildly impaired Findings Initially, the SLUMS was administered as a screening tool of cognition. The results indicated the pt's score was 20/30, or a mild cognitive impairment. The errors with the SLUMS indicated there were difficulties with attention ( e.g., putting an X on the triangle). Pt placed the X on the rectangle, as an example. Formal cognitive assessment was conducted using The Scales of Cognitive and Communicative Ability for Neurorehabilitation (SCCAN). The SCCAN assesses cognitive- communicative deficits and functional ability in patients within eight cognitive scales , total performance and a SCCAN degree of severity. The eight cognitive scales include : Oral Expression, Orientation, Memory, Speech Comprehension, Reading Comprehension, Writing , Attention and Problem Solving. Pt's scored WNL for only the scale of Orientation. For six of the remaining scales (Oral Expression, Memory, Speech Comprehension, Reading Comprehension, Writing and Problem Solving), he scored a mild cognitive impairment. For the Attention scale, pt scored a moderate cognitive impairment. The cognitive domain of Attention is a foundational skill that underlies and supports all other cognitive abilities. Functionally, attention affects self-monitoring and self regulating behavior, problem-solving, planning, initiation, organization and task persistence, memory, and executive functioning. Throughout the SCCAN, the pt's reduced attention was demonstrated as: difficulty following directions (i.e., using/writing complete sentences as directed), rushing through a task without checking work, scanning written stimuli for comprehension, accurately drawing a defined time on a clock, following complex directions (e.g., impulsively performed in error), etc. Cognitive Communication Deficits Self-awareness of Cognitive- Limited awareness (minimal Communication Deficits appreciation without specificity) Impact on Functioning Activity Limits/Particip.Rest. Mild: General Tasks and Demands Household Tasks Safety Risks Mod: Being Left Alone at Home Reacting to Emergency Managing Medication Traveling Alone in Community Prognosis Prognosis Good Based on Family support,Duration of symptoms/severity Plan of Care Speech-Language Treatment Yes Frequency Weekly Duration 3-6 months Patient/Caregiver Education Described results of evaluation,Patient expressed understanding of evaluation, Family/caregivers expressed understanding of evaluation, Patient requires further education/training,Family/ caregivers require further education/training Short Term Goals The pt will be undergo a complete neuropsychological evaluation. The pt/family will be educated about the roll attention plays in all areas of cognition. Th pt will complete a Functional Needs Assessment for development of POC.
--- NOTE | 2020-11-13 17:40 | ST.OPTN ---
Visit Care Team Role Provider Type Gurvinder Young DO Attending Provider Non-Staff Primary Care Provider Referring Provider Address: [address] [place] [address], [id number] SHELL SIEVE OPERATOR Treatment Note SHELL SIEVE OPERATOR Treatment Note Start: 10/18/20 14:23 Freq: Status: Active Protocol: Document 11/13/20 16:23 LNK (Rec: 11/13/20 17:15 LNK [email or web address]) Speech Pathology Treatment Note Session Time Visit Start Time 11:30 Visit Stop Time 13:00 Total Visit Minutes 90 Visit Information Visit Number 2 Plan of Care Dates 10/18/20-01/17/21 Setting Treatment Setting Outpatient Care Visit Type Note Type Treatment Note Next Note Type Next Note Type Treatment Note General Information General Information Pt is a 75 year old male seen fir assessment secondary to a 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 According to the pt and his , Carri, in 2019 the pt was diagnosed with tonsilar cancer, which was followed by 30 radiation treatment. Radiation treatment was unsuccessful and a biopsy was ordered. Pt reported that in June 2019, he underwent surgical intervention whinch included removal of most of the soft palate, removal of half of the tongue root and oral reconstruction using pt's back bone to replace the right side of his mandible. According to the pt the cancer had metastisized to the lymph nodes. The radiation therapy had also damaged his right mandible. Pt also has a g-tube for nutrition and hydration. He would like to eat and is here for swallowing therapy. Additionally the pt's speech is significantly dysarthric and hypernasal; for which he would also want speech therapy to improve intelligibility. According to the records reviewed the pt also has demonstrated changes in behavior and and mood due to significant atrophy of bilateral frontal lobes. Subjective Identification Type Name,Date of Observations/Patient Presentation Met with Eric and his to discuss the results of SCAN cognitive assessment ( see results for cognitive- linguistic evaluation 11/04/20) . Chief Complaint(s) Speech,Swallowing,Cognitive Rehab Expectation/Goals: Patient Goals Would like to return to his life. Patient Knowledge/Awareness of SHELL SIEVE OPERATOR Role Good in Treatment Parent/Caretake Knowledge/Awareness of Good SHELL SIEVE OPERATOR Role in Treatment Objective Short Term Goals The pt will be undergo a complete neuropsychological evaluation. The pt/family will be educated about the roll attention plays in all areas of cognition. The pt will complete a Functional Needs Assessment for development of POC. Treatment Activities The results of the SCAAN were described for the pt. Described the cognitive domains that were WNL and mildly impaired. When describing the domain of Attention (moderately impaired ), instances of errors were pointed out to the pt as examples of lack of attention. Pt responded by challenging the results. Further education and discussion relative to the findings of the test and overall implications followed. The pt was dismissive of the results; however, he agreed to move on and discuss therapeutic options and strategy. When this SHELL SIEVE OPERATOR asked both the pt and his what was not going well for the pt at home, his gestured that a lot had been happening. With encouragement, she described the past 18-24 months of her observations and frustrations with her and his behavior changes. She described her as self- involved, impulsive with limited insight into her experiences or concerns. She began to notice more anger and behavior changes to the point of not recognizing him any more. She also described mood swings, dressing differently, and being argumentative. He was spending a lot of money that they did not have at the time. Finally, she noted that today's discussion was the first time she had expressed her feelings and frustrations regarding Eric's health and behavior changes. She spoke for over 30 minutes after the time for the session to end. Pt was then asked if he was aware of the things his was describing. his response was; Yes, I was kind of aware of that. Throughout this session, my observations of the pt's behavior included: apathy, lack of awareness, disregard of others and feelings or points of view. He appeared to lack understanding; diminishing his situation and/or the impact on others, especially that of his behaviors. He frequently interrupted his as she spoke, arguing and correcting her. Assessment Patient Response to Treatment Good Rehab Potential Good Impairments Identified Cognitive-Linguistic Skills, Dysarthria,Dysphagia,Oral Motor,Speech Intelligibility, Vocal Quality Additional Impairments Identified poor insight/awareness Comment Pt does not currently have an appointment with Neuropsychiatrist Assessment of Improvement Initially, therapy was to focus on swallowing , cognition and articulation/ obturator. At this point in therapy, pt's cognition and developing a POC and strategies to assist the pt in ADLs, etc is a high priority. Further, articulation with referral to a prosthedontist is the next priority followed by swallowing as a lower priority. This has been discussed with the pt and his who are in agreement. Reviewed with Patient Goals Patient/Caregiver Understanding Fair Plan Amount of Therapy Recommended 6 Months Frequency of Treatment Once a Week Length of Session 60 Minutes Treatment Emphasis Next Session Develop functional POC for pt/ . Ongoing discussion as indicated Therapeutic Contents Client Education,Cognitive- Linguistic Training, Intelligibility,Oral Motor Training,Swallowing/Feeding, Other Comment Possible referral for family counseling Suggested Referral Neurology,Other Other Referrals Neuropsychologist; prosthedontist
--- NOTE | 2020-11-20 14:10 | ST.OPTN ---
Visit Care Team Role Provider Type Gurvinder Young DO Attending Provider Non-Staff Primary Care Provider Referring Provider Address: [address] [place] [address], [id number] SOFT SUGAR OPERATOR HEAD Treatment Note SOFT SUGAR OPERATOR HEAD Treatment Note Start: 10/18/20 14:23 Freq: Status: Active Protocol: Document 11/20/20 13:59 LNK (Rec: 11/20/20 14:10 LNK [email or web address]) Speech Pathology Treatment Note Session Time Visit Start Time 11:30 Visit Stop Time 13:00 Total Visit Minutes 75 Visit Information Visit Number 3 Plan of Care Dates 10/18/20-01/17/21 Setting Treatment Setting Outpatient Care Visit Type Note Type Treatment Note Next Note Type Next Note Type Treatment Note General Information General Information Pt is a 75 year ol male seen fir assessment secondary to a 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 According to the pt and his , Carri, in 2019 the pt was diagnosed with tonsilar cancer, which was followed by 30 radiation treatment. Radiation treatment was unsuccessful and a biopsy was ordered. Pt reported that in June 2019, he underwent surgical intervention whinch included removal of most of the soft palate, removal of half of the tongue root and oral reconstruction using pt's back bone to replace the right side of his mandible. According to the pt the cancer had metastisized to the lymph nodes. The radiation therapy had also damaged his right mandible. Pt also has a g-tube for nutrition and hydration. He would like to eat and is here for swallowing therapy. Additionally the pt's speech is significantly dysarthric and hypernasal; for which he would also want speech therapy to improve intelligibility. According to the records reviewed the pt also has demonstrated changes in behavior and and mood due to significant atrophy of bilateral frontal lobes. Subjective Identification Type Name,Date of Observations/Patient Presentation Met with Eric and his to discuss the results of SCAN cognitive assessment ( see results for cognitive- linguistic evaluation 11/04/20) . Chief Complaint(s) Speech,Swallowing,Cognitive Rehab Expectation/Goals: Patient Goals Would like to return to his life. Patient Knowledge/Awareness of SOFT SUGAR OPERATOR HEAD Role Good in Treatment Parent/Caretake Knowledge/Awareness of Good SOFT SUGAR OPERATOR HEAD Role in Treatment Objective Short Term Goals The pt will be undergo a complete neuropsychological evaluation. The pt/family will be educated about the roll attention plays in all areas of cognition. Th pt will complete a Functional Needs Assessment for development of POC. Treatment Activities Pt had questions regarding POC . He wants to eat; states he is tasting foods/liquids and spitting them out. His concurs that he is spitting them out. Discussed attention skills and activities. Introduced pt to [employer], which he has never played. He will practice to learn the game and try to increase speed /accuracy. Discussed [employer] and [employer], Brain games, and Mind [employer] as having activities for attention training. Assessment Patient Response to Treatment Good Rehab Potential Good Impairments Identified Cognitive-Linguistic Skills, Dysarthria,Dysphagia,Oral Motor,Speech Intelligibility, Vocal Quality Additional Impairments Identified poor insight/awareness Comment reported that they received a call from a neurologist to make appt. Assessment of Improvement Initially, therapy was to focus on swallowing , cognition and articulation/ obturator. At this point in therapy, pt's cognition and developing a POC and strategies to assist the pt in ADLs, etc is a high priority. Further, articulation with referral to a prosthedontist is the next priority followed by swallowing as a lower priority. This has been discussed with the pt and his who are in agreement. Reviewed with Patient Goals Patient/Caregiver Understanding Fair Plan Amount of Therapy Recommended 6 Months Frequency of Treatment Once a Week Length of Session 60 Minutes Treatment Emphasis Next Session Develop functional POC for pt/ . Ongoing discussion as indicated Therapeutic Contents Client Education,Cognitive- Linguistic Training, Intelligibility,Oral Motor Training,Swallowing/Feeding, Other Comment Possible referral for family counseling Suggested Referral Neurology,Other Other Referrals Neuropsychologist; prosthedontist
--- NOTE | 2020-11-27 17:10 | ST.OPTN ---
Visit Care Team Role Provider Type Gurvinder Young DO Attending Provider Non-Staff Primary Care Provider Referring Provider Address: [address] [place] [address], [id number] ASSEMBLER DC FIELD YOKE Treatment Note ASSEMBLER [employer] Treatment Note Start: 10/18/20 14:23 Freq: Status: Active Protocol: Document 11/27/20 17:02 LNK (Rec: 11/27/20 17:09 LNK [id number]) Speech Pathology Treatment Note Session Time Visit Start Time 11:30 Visit Stop Time 13:00 Total Visit Minutes 75 Visit Information Visit Number 4 Plan of Care Dates 10/18/20-01/17/21 Setting Treatment Setting Outpatient Care Visit Type Note Type Treatment Note Next Note Type Next Note Type Treatment Note General Information General Information Pt is a 75 year ol male seen fir assessment secondary to a 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 According to the pt and his , Carri, in 2019 the pt was diagnosed with tonsilar cancer, which was followed by 30 radiation treatment. Radiation treatment was unsuccessful and a biopsy was ordered. Pt reported that in June 2019, he underwent surgical intervention whinch included removal of most of the soft palate, removal of half of the tongue root and oral reconstruction using pt's back bone to replace the right side of his mandible. According to the pt the cancer had metastisized to the lymph nodes. The radiation therapy had also damaged his right mandible. Pt also has a g-tube for nutrition and hydration. He would like to eat and is here for swallowing therapy. Additionally the pt's speech is significantly dysarthric and hypernasal; for which he would also want speech therapy to improve intelligibility. According to the records reviewed the pt also has demonstrated changes in behavior and and mood due to significant atrophy of bilateral frontal lobes. Subjective Identification Type Name,Date of Observations/Patient Presentation Met with Eric and his to discuss the results of [facility] cognitive assessment ( see results for cognitive- linguistic evaluation 11/04/20) . Chief Complaint(s) Speech,Swallowing,Cognitive Rehab Expectation/Goals: Patient Goals Would like to return to his life. Patient Knowledge/Awareness of ASSEMBLER DC [employer] YOKE Role Good in Treatment Parent/Caretake Knowledge/Awareness of Good ASSEMBLER DC [employer]KE Role in Treatment Objective Short Term Goals The pt will be undergo a complete neuropsychological evaluation. The pt/family will be educated about the roll attention plays in all areas of cognition. Th pt will complete a Functional Needs Assessment for development of POC. Treatment Activities Continued with attention skills and activities. Using a deck of cards, Eric played Solitaire while being coached through attending to the different elements of the game . He definitely was better at the game than last week. he tended to focus on either the game board cards or the suite cards. he needed cuing to check both throughout the game . # of plays on the board were cued verbally. After time Eric was able to locate ~85-90% of the plays. He he indicated he enjoyed the game. His will start to play as well. Assessment Patient Response to Treatment Good Rehab Potential Good Impairments Identified Cognitive-Linguistic Skills, Dysarthria,Dysphagia,Oral Motor,Speech Intelligibility, Vocal Quality Additional Impairments Identified poor insight/awareness Comment reported that they received a call from a neurologist to make appt. Assessment of Improvement Eric reported that he has an appointment with Dr Young tomorrow. Additionally, they have an appointment set with a neurologist in early January. Reviewed with Patient Goals Patient/Caregiver Understanding Fair Plan Amount of Therapy Recommended 6 Months Frequency of Treatment Once a Week Length of Session 60 Minutes Treatment Emphasis Next Session Develop functional POC for pt/ . Ongoing discussion as indicated Therapeutic Contents Client Education,Cognitive- Linguistic Training, Intelligibility,Oral Motor Training,Swallowing/Feeding, Other Comment Possible referral for family counseling Suggested Referral Neurology,Other Other Referrals Neuropsychologist; prosthedontist
--- NOTE | 2020-12-04 13:28 | ST.OPTN ---
Visit Care Team Role Provider Type Gurvinder Young DO Attending Provider Non-Staff Primary Care Provider Referring Provider Address: [address] [place] [address], [id number] FAMILY COACH Treatment Note FAMILY COACH Treatment Note Start: 10/18/20 14:23 Freq: Status: Active Protocol: Document 12/04/20 12:59 LNK (Rec: 12/04/20 13:27 LNK [id number]) Speech Pathology Treatment Note Session Time Visit Start Time 11:30 Visit Stop Time 12:30 Total Visit Minutes 60 Visit Information Visit Number 4 Plan of Care Dates 10/18/20-01/17/21 Setting Treatment Setting Outpatient Care Visit Type Note Type Treatment Note Next Note Type Next Note Type Treatment Note General Information General Information Pt is a 75 year old male seen for assessment secondary to a 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 According to the pt and his , Carri, in 2019 the pt was diagnosed with tonsilar cancer, which was followed by 30 radiation treatment. Radiation treatment was unsuccessful and a biopsy was ordered. Pt reported that in June 2019, he underwent surgical intervention whinch included removal of most of the soft palate, removal of half of the tongue root and oral reconstruction using pt's back bone to replace the right side of his mandible. According to the pt the cancer had metastisized to the lymph nodes. The radiation therapy had also damaged his right mandible. Pt also has a g-tube for nutrition and hydration. He would like to eat and is here for swallowing therapy. Additionally the pt's speech is significantly dysarthric and hypernasal; for which he would also want speech therapy to improve intelligibility. According to the records reviewed the pt also has demonstrated changes in behavior and and mood due to significant atrophy of bilateral frontal lobes. Subjective Identification Type Name,Date of Observations/Patient Presentation Met with Eric and his to discuss the results of [facility] cognitive assessment ( see results for cognitive- linguistic evaluation 11/04/20) . Chief Complaint(s) Speech,Swallowing,Cognitive Rehab Expectation/Goals: Patient Goals Would like to return to his life. Patient Knowledge/Awareness of FAMILY COACH Role Good in Treatment Parent/Caretake Knowledge/Awareness of Good FAMILY COACH Role in Treatment Objective Short Term Goals The pt will be undergo a complete neuropsychological evaluation. The pt/family will be educated about the roll attention plays in all areas of cognition. Th pt will complete a Functional Needs Assessment for development of POC. Treatment Activities Continued with attention skills using Solitaire. Significantly less cuing was needed for pt to focus and complete moves. Of 16 moves, Eric needed cuing 4x (25%). This was much better than last week. Better focus and used divided attention successfully. plays. He has been playing [employer] at home. Introduced word game of making x number of words from a set of five letters. He did well at levels 1-2. Assessment Patient Response to Treatment Good Rehab Potential Good Impairments Identified Cognitive-Linguistic Skills, Dysarthria,Dysphagia,Oral Motor,Speech Intelligibility, Vocal Quality Additional Impairments Identified poor insight/awareness Comment reported that they received a call from a neurologist to make appt. Assessment of Improvement Currently therapy is targeting cognitive activities that are designed for diminished attention and executive functioning. Reviewed with Patient Goals Patient/Caregiver Understanding Fair Plan Amount of Therapy Recommended 6 Months Frequency of Treatment Once a Week Length of Session 60 Minutes Treatment Emphasis Next Session Develop functional POC for pt/ . Ongoing discussion as indicated Therapeutic Contents Client Education,Cognitive- Linguistic Training, Intelligibility,Oral Motor Training,Swallowing/Feeding, Other Comment Possible referral for family counseling Suggested Referral Neurology,Other Other Referrals Neuropsychologist; prosthedontist
--- NOTE | 2020-12-11 17:00 | ST.OPTN ---
Visit Care Team Role Provider Type Gurvinder Young DO Attending Provider Non-Staff Primary Care Provider Referring Provider Address: [address] [place] [address], [id number] DIRECTOR OF LABOR RELATIONS Treatment Note DIRECTOR OF LABOR RELATIONS Treatment Note Start: 10/18/20 14:23 Freq: Status: Active Protocol: Document 12/11/20 16:54 LNK (Rec: 12/11/20 17:00 LNK [id number]) Speech Pathology Treatment Note Session Time Visit Start Time 12:35 Visit Stop Time 13:05 Total Visit Minutes 60 Visit Information Visit Number 5 Plan of Care Dates 10/18/20-01/17/21 Setting Treatment Setting Outpatient Care Visit Type Note Type Treatment Note Next Note Type Next Note Type Treatment Note General Information General Information Pt is a 75 year old male seen for assessment secondary to a 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 According to the pt and his , Carri, in 2019 the pt was diagnosed with tonsilar cancer, which was followed by 30 radiation treatment. Radiation treatment was unsuccessful and a biopsy was ordered. Pt reported that in June 2019, he underwent surgical intervention whinch included removal of most of the soft palate, removal of half of the tongue root and oral reconstruction using pt's back bone to replace the right side of his mandible. According to the pt the cancer had metastisized to the lymph nodes. The radiation therapy had also damaged his right mandible. Pt also has a g-tube for nutrition and hydration. He would like to eat and is here for swallowing therapy. Additionally the pt's speech is significantly dysarthric and hypernasal; for which he would also want speech therapy to improve intelligibility. According to the records reviewed the pt also has demonstrated changes in behavior and and mood due to significant atrophy of bilateral frontal lobes. Subjective Identification Type Name,Date of Observations/Patient Presentation Met with Eric and his to discuss the results of [facility] cognitive assessment ( see results for cognitive- linguistic evaluation 11/04/20) . Chief Complaint(s) Speech,Swallowing,Cognitive Rehab Expectation/Goals: Patient Goals Would like to return to his life. Patient Knowledge/Awareness of DIRECTOR OF LABOR RELATIONS Role Good in Treatment Parent/Caretake Knowledge/Awareness of Good DIRECTOR OF LABOR RELATIONS Role in Treatment Objective Short Term Goals The pt will be undergo a complete neuropsychological evaluation. The pt/family will be educated about the roll attention plays in all areas of cognition. Th pt will complete a Functional Needs Assessment for development of POC. Treatment Activities Continued with attention skills using double Solitaire. Introduced one- back card game for attention and working skills. Less cuing and improved attention noted. Eric needed cuing ~4x. Better focus with divided attention. Introduced word game of making x number of words from a set of five letters. He did well at levels 1-2. Assessment Patient Response to Treatment Good Rehab Potential Good Impairments Identified Cognitive-Linguistic Skills, Dysarthria,Dysphagia,Oral Motor,Speech Intelligibility, Vocal Quality Additional Impairments Identified poor insight/awareness Comment reported that they received a call from a neurologist to make appt. Assessment of Improvement Currently therapy is targeting cognitive activities that are designed for diminished attention and executive functioning. Reviewed with Patient Goals Patient/Caregiver Understanding Fair Plan Amount of Therapy Recommended 6 Months Frequency of Treatment Once a Week Length of Session 60 Minutes Treatment Emphasis Next Session Develop functional POC for pt/ . Ongoing discussion as indicated Therapeutic Contents Client Education,Cognitive- Linguistic Training, Intelligibility,Oral Motor Training,Swallowing/Feeding, Other Comment Possible referral for family counseling Suggested Referral Neurology,Other Other Referrals Neuropsychologist; prosthedontist
--- NOTE | 2020-12-18 15:23 | ST.OPTN ---
Visit Care Team Role Provider Type Gurvinder Young DO Attending Provider Non-Staff Primary Care Provider Referring Provider Address: [address] [place] [address], [id number] [address] Treatment Note [address] [employer]ROL OFFICER Treatment Note Start: 10/18/20 14:23 Freq: Status: Active Protocol: Document 12/18/20 15:08 LNK (Rec: 12/18/20 15:22 LNK [email or web address]) Speech Pathology Treatment Note Session Time Visit Start Time 11:30 Visit Stop Time 12:45 Total Visit Minutes 75 Visit Information Visit Number 6 Plan of Care Dates 10/18/20-01/17/21 Setting Treatment Setting Outpatient Care Visit Type Note Type Treatment Note Next Note Type Next Note Type Treatment Note General Information General Information Pt is a 75 year old male seen for assessment secondary to a 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 According to the pt and his , Carri, in 2019 the pt was diagnosed with tonsilar cancer, which was followed by 30 radiation treatments. Radiation treatment was unsuccessful and a biopsy was ordered. Pt reported that in June 2019, he underwent surgical intervention which included removal of most of the soft palate, removal of half of the tongue root and oral reconstruction using pt's back bone to replace the right side of his mandible. According to the pt the cancer had metastisized to the lymph nodes. The radiation therapy had also damaged his right mandible. Pt also has a g-tube for nutrition and hydration. He would like to eat and is here for swallowing therapy. Additionally the pt's speech is significantly dysarthric and hypernasal; for which he would also want speech therapy to improve intelligibility. According to the records reviewed the pt also has demonstrated changes in behavior and and mood due to significant atrophy of bilateral frontal lobes. Subjective Identification Type Name,Date of Chief Complaint(s) Speech,Swallowing,Cognitive Rehab Expectation/Goals: Patient Goals Would like to return to his life. Patient Knowledge/Awareness of [address]IGHW[address] PATROL OFFICER Role Good in Treatment Parent/Caretake Knowledge/Awareness of Good [address]HW[address] PATROL OFFICER Role in Treatment Objective Short Term Goals The pt will be undergo a complete neuropsychological evaluation. The pt/family will be educated about the roll attention plays in all areas of cognition. Th pt will complete a Functional Needs Assessment for development of POC. Treatment Activities Pt was seen for an MBSS on 12/11/20. Reviewed the results and the video of the MBSS with pt and his . Initially, a computer generated video of a normal swallow was presented and described for them. Following that, and answering all questions, the pt's MBSS was reviewed in detail. All pt and spouse questions were answered an they expressed that they have a better understanding of his swallow limitations and very high risk for aspiration. (See MBSS report 12/11/20 by SARA Noe.) However, on a more positive note, the MBSS indicated there was some vertical movement of the hyolaryngeal structures. This movement was limited. Lingua pharyngeal exercises were discussed with the pt. The [place] and the Shaker exercises were described and demonstrated for the pt. He demonstrated each appropriately. Written directions were provided. Assessment Patient Response to Treatment Good Rehab Potential Good Impairments Identified Cognitive-Linguistic Skills, Dysarthria,Dysphagia,Oral Motor,Speech Intelligibility, Vocal Quality Additional Impairments Identified poor insight/awareness Comment reported that they received a call from a neurologist to make appt. Reviewed with Patient Goals Patient/Caregiver Understanding Fair Plan Amount of Therapy Recommended 6 Months Frequency of Treatment Once a Week Length of Session 60 Minutes Treatment Emphasis Next Session Develop functional POC for pt/ . Ongoing discussion as indicated Therapeutic Contents Client Education,Cognitive- Linguistic Training, Intelligibility,Oral Motor Training,Swallowing/Feeding, Other Comment Possible referral for family counseling Suggested Referral Neurology,Other Other Referrals Neuropsychologist; prosthedontist
--- NOTE | 2020-12-25 16:54 | ST.OPTN ---
Visit Care Team Role Provider Type Gurvinder Young DO Attending Provider Non-Staff Primary Care Provider Referring Provider Address: [address] [place] [address], [id number] [employer] [employer]HOUSE Treatment Note SUPERVIS[employer]SE Treatment Note Start: 10/18/20 14:23 Freq: Status: Active Protocol: Document 12/25/20 16:39 LNK (Rec: 12/25/20 16:53 LNK [email or web address]) Speech Pathology Treatment Note Session Time Visit Start Time 11:30 Visit Stop Time 12:30 Total Visit Minutes 60 Visit Information Visit Number 7 Plan of Care Dates 10/18/20-01/17/21 Setting Treatment Setting Outpatient Care Visit Type Note Type Treatment Note Next Note Type Next Note Type Treatment Note General Information General Information Pt is a 75 year old male seen for assessment secondary to a 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 According to the pt and his , Carri, in 2019 the pt was diagnosed with tonsilar cancer, which was followed by 30 radiation treatment. Radiation treatment was unsuccessful and a biopsy was ordered. Pt reported that in June 2019, he underwent surgical intervention whinch included removal of most of the soft palate, removal of half of the tongue root and oral reconstruction using pt's back bone to replace the right side of his mandible. According to the pt the cancer had metastisized to the lymph nodes. The radiation therapy had also damaged his right mandible. Pt also has a g-tube for nutrition and hydration. He would like to eat and is here for swallowing therapy. Additionally the pt's speech is significantly dysarthric and hypernasal; for which he would also want speech therapy to improve intelligibility. According to the records reviewed the pt also has demonstrated changes in behavior and and mood due to significant atrophy of bilateral frontal lobes. Subjective Identification Type Name,Date of Observations/Patient Presentation Met with Eric and his to discuss the results of [facility] cognitive assessment ( see results for cognitive- linguistic evaluation 11/04/20) . Chief Complaint(s) Speech,Swallowing,Cognitive Rehab Expectation/Goals: Patient Goals Would like to return to his life. Patient Knowledge/Awareness of [employer] Role Good in Treatment Parent/Caretake Knowledge/Awareness of Good [employer] Role in Treatment Objective Short Term Goals The pt will be undergo a complete neuropsychological evaluation. The pt/family will be educated about the roll attention plays in all areas of cognition. Th pt will complete a Functional Needs Assessment for development of POC. Treatment Activities Pt reported that he is completing exercises 3-5x/day. Additionally he is completing attention exercises as well. Suggested he increase difficulty slowly. Reinforced that it will take time to see if there are results. Additionally gave pt a ose plug to use at home to increase speech intelligibility (reduce nasality). Pt used noseplug for ~5 minutes. Discussed getting a portable suction device to reduce the use of tissue re: saliva. Pt and report that cognitively pt's behaviors have not changed and appear to be steady. Instructed pt to talk louder and exaggerate oral movements in order to improve intelligibility.. he noted that when he does this he drools. Assessment Patient Response to Treatment Good Rehab Potential Good Impairments Identified Cognitive-Linguistic Skills, Dysarthria,Dysphagia,Oral Motor,Speech Intelligibility, Vocal Quality Additional Impairments Identified poor insight/awareness Comment reported that they received a call from a neurologist to make appt. Reviewed with Patient Goals Patient/Caregiver Understanding Fair Plan Amount of Therapy Recommended 6 Months Frequency of Treatment Once a Week Length of Session 60 Minutes Treatment Emphasis Next Session Develop functional POC for pt/ . Ongoing discussion as indicated Therapeutic Contents Client Education,Cognitive- Linguistic Training, Intelligibility,Oral Motor Training,Swallowing/Feeding, Other Comment Possible referral for family counseling Suggested Referral Neurology,Other Other Referrals Neuropsychologist; prosthedontist
--- NOTE | 2021-01-08 13:36 | ST.OPTN ---
Visit Care Team Role Provider Type Gurvinder Young DO Attending Provider Non-Staff Primary Care Provider Referring Provider Address: [address] [place] [address], [id number] [employer] TECHNICIAN Treatment Note [employer] TECHNICIAN Treatment Note Start: 10/18/20 14:23 Freq: Status: Active Protocol: Document 01/08/21 11:28 LNK (Rec: 01/08/21 13:36 LNK [email or web address]) Speech Pathology Treatment Note Session Time Visit Start Time 11:30 Visit Stop Time 12:30 Total Visit Minutes 60 Visit Information Visit Number 8 Plan of Care Dates 10/18/20-01/17/21 Setting Treatment Setting Outpatient Care Visit Type Note Type Treatment Note Next Note Type Next Note Type Treatment Note General Information General Information Pt is a 75 year old male seen for assessment secondary to a 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 According to the pt and his , Carri, in 2019 the pt was diagnosed with tonsilar cancer, which was followed by 30 radiation treatment. Radiation treatment was unsuccessful and a biopsy was ordered. Pt reported that in June 2019, he underwent surgical intervention whinch included removal of most of the soft palate, removal of half of the tongue root and oral reconstruction using pt's back bone to replace the right side of his mandible. According to the pt the cancer had metastisized to the lymph nodes. The radiation therapy had also damaged his right mandible. Pt also has a g-tube for nutrition and hydration. He would like to eat and is here for swallowing therapy. Additionally the pt's speech is significantly dysarthric and hypernasal; for which he would also want speech therapy to improve intelligibility. According to the records reviewed the pt also has demonstrated changes in behavior and and mood due to significant atrophy of bilateral frontal lobes. Subjective Identification Type Name,Date of Observations/Patient Presentation Met with Eric and his to discuss the results of [facility] cognitive assessment ( see results for cognitive- linguistic evaluation 11/04/20) . Chief Complaint(s) Speech,Swallowing,Cognitive Rehab Expectation/Goals: Patient Goals Would like to return to his life. Patient Knowledge/Awareness of [employer] SERVICE TECHNICIAN Role Good in Treatment Parent/Caretake Knowledge/Awareness of Good [employer] SERVICE TECHNICIAN Role in Treatment Objective Short Term Goals The pt will be undergo a complete neuropsychological evaluation. The pt/family will be educated about the roll attention plays in all areas of cognition. Th pt will complete a Functional Needs Assessment for development of POC. Treatment Activities Pt reported that he is completing exercises 3-5x/day. Additionally, he is completing attention exercises . Suggested he increase difficulty slowly. Eric has two appointments on January 27 with his surgeon and oncologist. he is starting PT in January. Eric mentioned that he wants to contact the [employer] Specialist of the [employer] ([facility] [facility]) to get a job. Eric thinks that he could help the Surgical Training Specialist. Spent some time discussing the reality of situation and convinced him that his idea was not attainable. Currently, we are in a holding patter awaiting the results from his doctors. Decided to hold therapy until the beginning of February. Assessment Patient Response to Treatment Good Rehab Potential Good Impairments Identified Cognitive-Linguistic Skills, Dysarthria,Dysphagia,Oral Motor,Speech Intelligibility, Vocal Quality Additional Impairments Identified poor insight/awareness Assessment of Improvement Reinforced that it will take time to see if there are results. Additionally gave pt a nose plug to use at home to increase speech intelligibility (reduce nasality). Pt used nose plug for ~5 minutes. Discussed getting a portable suction device to reduce the use of tissue re: saliva. Pt and report that cognitively pt's behaviors have not changed and appear to be steady. Instructed pt to talk louder and exaggerate oral movements in order to improve intelligibility. He noted that when he does this he drools. Reviewed with Patient Goals Patient/Caregiver Understanding Fair Plan Amount of Therapy Recommended 6 Months Frequency of Treatment Once a Week Length of Session 60 Minutes Treatment Emphasis Next Session Develop functional POC for pt/ . Ongoing discussion as indicated Therapeutic Contents Client Education,Cognitive- Linguistic Training, Intelligibility,Oral Motor Training,Swallowing/Feeding, Other Comment Possible referral for family counseling Suggested Referral Neurology,Other Other Referrals Neuropsychologist; prosthedontist
--- NOTE | 2021-03-25 13:35 | ST.OPTN ---
Addendum entered and electronically signed by Yulisa Valentine 03/25/21 13:36: This is a dischare report. 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 According to the pt and his , Carri, in 2019 the pt was diagnosed with tonsilar cancer, which was followed by 30 radiation treatment. Radiation treatment was unsuccessful and a biopsy was ordered. Pt reported that in June 2019, he underwent surgical intervention which included removal of most of the soft palate, removal of half of the tongue root and oral reconstruction using pt's back bone to replace the right side of his mandible. According to the pt the cancer had metastisized to the lymph nodes. The radiation therapy had also damaged his right mandible. Pt also has a g-tube for nutrition and hydration. He would like to eat and is here for swallowing therapy. Additionally the pt's speech is significantly dysarthric and hypernasal; for which he would also want speech therapy to improve intelligibility. According to the records reviewed the pt also has demonstrated changes in behavior and and mood due to significant atrophy of bilateral frontal lobes. Objective Treatment Activities Pt has not returned to this clinic since 01/08/21. Email sent regarding return to treatment. No response back. Will discharge at this time Assessment Impairments Identified Cognitive-Linguistic Skills, Dysarthria,Dysphagia,Oral Motor,Speech Intelligibility, Vocal Quality Plan Amount of Therapy Recommended No Further Therapy Frequency of Treatment No Further Therapy Therapeutic Contents Client Education,Cognitive- Linguistic Training, Intelligibility,Oral Motor Training,Swallowing/Feeding, Other Therapy Recommendations Discharge from Speech Therapy
== END 2021-03-31 09:12 ==
LOC: SP 11:30
PROVIDERS: PCP Family Medicine; Referring Provider Family Medicine; Visit Provider Family Medicine
DX: R13.10 Dysphagia, unspecified (principal)
CPT/HCPCS: 92507; 92522; 92526; 96125; 97129; 97130